=== PATIENT | male | born 1970 | race Caucasian/White ===

== ENCOUNTER 2019-10-04 12:43 | Outpatient (CLI) | payer BC, SELFPAY ==
--- NOTE | ~2019-10-04 | MM_ITS ---
EXAMINATION: MM diagnostic mammo BI HISTORY: Bilateral diagnostic mammogram for swollen and tender left breast TECHNIQUE: Full field digital craniocaudal and mediolateral oblique views of both breasts were obtain ed. CAD analysis was submitted and interpreted. COMPARISON: No prior mammogram is available for comparison at this institution. BREAST PARENCHYMAL COMPOSITION: The breasts are almost entirely fatty. FINDINGS: There is flame-shaped subareolar density in both breasts, left greater than right. No suspi cious mass, calcification, or architectural distortion is identified. IMPRESSION: 1. Findings consistent with asymmetric gynecomastia. No mammographic evidence of malignancy. Further evaluation at this time should be based on clinical assessment. Continued follow-up physical examinat ion is recommended. BI-RADS Category 2: Benign finding(s). Reviewed, dictated and finalized at location A. IMPRESSION: 1. Findings consistent with asymmetric gynecomastia. No mammographic evidence o f malignancy. Further evaluation at this time should be based on clinical asses sment. Continued follow-up physical examination is recommended. BI-RADS Category 2: Benign finding(s).
== END 2019-10-04 12:44 | disposition home or self-care (01) ==
LOC: ANHIMG 12:50
PROVIDERS: PCP Family Medicine; Visit Provider Family Medicine
DX: N62 Hypertrophy of breast (principal)
CPT/HCPCS: 77066

== ENCOUNTER 2020-02-27 07:55 | Outpatient (NON) | payer BC, SELFPAY ==
[2020-02-27 23:32] LABS: SARS-CoV-2 RNA PCR Negative
== END 2020-02-27 07:56 ==
PROVIDERS: PCP Family Medicine
DX: Z20.828 Contact with and (suspected) exposure to other viral communicable diseases (principal); R06.2 Wheezing
CPT/HCPCS: 87635; C9803; U0003

== ENCOUNTER 2021-06-02 00:12 | Day surgery (SDC) | payer BC, SELFPAY ==
[2021-05-23 13:14] VITALS: BMI 31.6
[2021-06-02 08:01] VITALS: BP 134/85; PULSE 101; RESP 17; TEMP 36.1; O2SAT 97; BMI 31.9
--- NOTE | 2021-06-02 08:04 | WPDANESEPPF ---
Anes - Initial Pre Proc Eval Procedure: Operation Date: 06/02/21 09:00 Proposed Procedures p Screening Colonoscopy - Danilo Bailey MD Date/Time: 06/02/21 08:04 Surgeon: Danilo Bailey MD Pre Op Diagnosis: neoplasm screening Patient Data Age: 50 Gender: M Height: 1.91 m Weight: 116 kg Last Vital Signs Temp 36.1 C L 06/02/21 08:01 Pulse 101 H 06/02/21 08:01 Resp 17 06/02/21 08:01 BP 134/85 06/02/21 08:01 Pulse Ox 97 06/02/21 08:01 Allergies Allergy/AdvReac Type Severity Reaction Status Date / Time No Known Allergies Allergy Verified 06/02/21 08:00 Home Medications Medication Instructions Recorded Confirmed Type cetirizine 10 mg tablet 10 mg PO DAILY PRN 11/11/20 06/02/21 History doxycycline hyclate 50 mg tablet 50 mg PO DAILY 11/11/20 06/02/21 History naproxen 500 mg tablet 500 mg PO BID PRN #60 tablet 12/12/20 06/02/21 Rx cyclobenzaprine 10 mg PO TID PRN 05/23/21 06/02/21 History fluticasone propionate [Flonase] 1 spray INTRANASAL BID 05/23/21 06/02/21 History multivit with min-folic acid 1 tablet PO DAILY 05/23/21 06/02/21 History [Adult One Daily Multivitamin] Patient hx anesthesia problems: none Family hx anesthesia problems: none Results Review: All pre-operative results and documents have been reviewed as part of the pre-operative evaluation. [facility] Past Medical History Medical History BMI 30.0-30.9,adult Gynecomastia Surgical History Surgical History History of removal of skin mole Family History Family History Sibling Hypertension Mother Cerebrovascular accident Social History Social History Second hand tobacco smoke exposure: No Alcohol intake: never Substance use: never Substance use type: does not use Gender identity (if verbalized by the patient): Male Anes - Eval Final PreProcedure Day of Procedure 06/02/21 08:04 Patient weight: obese Heart: regular rate and rhythm Lungs: clear to auscultation Airway: Mallampati scale class II Neurological: alert and oriented Last oral intake: >/= 8 hours ASA classification: II Emergent: no Anesthetic plan: proceed Anesthesia type and monitoring: general GIVS and standard monitoring Results Review: All pre-operative results and documents have been reviewed as part of the pre-operative evaluation. Informed Consent: The patient's anesthetic plan and its attendant risks and benefits were discussed with the patient/family/POA. Questions were solicited and answers provided to the satisfaction of the patient/family/POA.
[2021-06-02] MEDS: LACTATED RINGERS 1,000 ML 150 ML IV CONT (08:07)
--- NOTE | 2021-06-02 08:11 | WPDGICN ---
Assessment and Plan Assessment and plan (1) Encounter for screening colonoscopy: Code(s): Z12.11 - Encounter for screening for malignant neoplasm of colon Status: Acute Assessment and Plan: Patient presents for neoplasia screening because of his age. He also reports his father had colon resection apparently because of large :colon Lesion. (2) Family history of colonic polyps: Code(s): Z83.71 - Family history of colonic polyps Status: Acute Assessment and Plan: Patient's father had a colon resection presumed to be from large colon polyp. GI Consult Note Consult date/time: 06/02/21 08:11 HPI: Danilo Serrano is a 50 year old male Presents for screening colonoscopy. Patient reports that his current weight appetite and bowel movements are normal. Patient denies abdominal pain. He has had no bleeding. Family history is significant his father had a partial colectomy. Apparently because of a growth in his colon. Patient presents today for neoplasia screening. Review of Systems Review of Systems: All systems reviewed & are unremarkable except as noted in HPI and below PMFSH Past Medical History Medical History BMI 30.0-30.9,adult Gynecomastia Surgical History Surgical History History of removal of skin mole Family History Family History Sibling Hypertension Mother Cerebrovascular accident Social History Social History Second hand tobacco smoke exposure: No Alcohol intake: never Substance use: never Substance use type: does not use Gender identity (if verbalized by the patient): Male Meds Home Medications and Allergies Home Medications Medication Instructions Recorded Confirmed Type cetirizine 10 mg tablet 10 mg PO DAILY PRN 11/11/20 06/02/21 History doxycycline hyclate 50 mg tablet 50 mg PO DAILY 11/11/20 06/02/21 History naproxen 500 mg tablet 500 mg PO BID PRN #60 tablet 12/12/20 06/02/21 Rx cyclobenzaprine 10 mg PO TID PRN 05/23/21 06/02/21 History fluticasone propionate [Flonase] 1 spray INTRANASAL BID 05/23/21 06/02/21 History multivit with min-folic acid 1 tablet PO DAILY 05/23/21 06/02/21 History [Adult One Daily Multivitamin] Allergies Allergy/AdvReac Type Severity Reaction Status Date / Time No Known Allergies Allergy Verified 06/02/21 08:00 Vital Signs Vital Signs - 24 hr 06/02/21 08:01 Temperature 96.9 F L Pulse Rate 101 H Respiratory Rate 17 Blood Pressure 134/85 Pulse Oximetry 97 Exam Narrative: Physical exam reveals patient to be alert. Vital signs stable. HEENT exam is unremarkable. Lungs are clear to auscultation and percussion. Heart is without murmur or extra sounds. Abdominal exam bowel sounds are present soft nontender with no hepatosplenomegaly. Digital external rectal exam is normal.
[2021-06-02 09:00] VITALS: BP 111/73; PULSE 90; RESP 19; O2SAT 96
[2021-06-02 09:10] VITALS: BP 118/76; PULSE 92; RESP 16; O2SAT 100
[2021-06-02 09:20] VITALS: BP 126/84; PULSE 91; RESP 18; O2SAT 100
== END 2021-06-02 09:28 | disposition home or self-care (01) ==
PROVIDERS: PCP Family Medicine; Visit Provider Internal Medicine Gastroenterology
PROC: 0DJD8ZZ Inspection of Lower Intestinal Tract, Via Natural or Artificial Opening Endoscopic (ICD-10-PCS; CPT 45378; principal; 2021-06-02 09:00)
DX: Z12.11 Encounter for screening for malignant neoplasm of colon (principal); Z83.71 Family history of colonic polyps; K57.30 Diverticulosis of large intestine without perforation or abscess without bleeding; K64.8 Other hemorrhoids; N62 Hypertrophy of breast; E66.9 Obesity, unspecified; Z68.32 Body mass index [BMI] 32.0-32.9, adult
CPT/HCPCS: 45378; J2001; J2704; J7120

== ENCOUNTER 2022-03-17 11:38 | Emergency (ER) | payer BC, SELFPAY ==
[2022-03-17 11:51] VITALS: BP 144/86; PULSE 109; RESP 16; TEMP 36.8; O2SAT 99
--- NOTE | 2022-03-17 12:02 | ED.URI ---
HPI - URI/Sore Throat General Chief Complaint: Upper Respiratory Infection Stated Complaint: congestion; swollen lymph nodes; trouble breathing Time Seen by Provider: 03/17/22 11:55 Source: patient Mode of arrival: ambulatory Limitations: no limitations History of Present Illness HPI Narrative: Danilo is a 51-year-old male patient presenting to clinic today with complaints of cough, nasal congestion, sinus pain, and difficulty breathing of his nose x4 weeks. He reports that his symptoms started out with a head cold and have gradually gotten worse. He denies any fever or chills. States he has been having yellow nasal drainage with thick chunks in it. MD elicited complaint: cough, rhinorrhea, nasal congestion and sinus pain Related Data Home Medications Medication Instructions Recorded Confirmed cetirizine 10 mg tablet (Zyrtec) 10 mg PO DAILY PRN Allergies 11/11/20 11/03/21 fluticasone propionate 50 1 spray intranasal BID 05/23/21 11/03/21 mcg/actuation nasal spray,suspension multivitamin with minerals-folic 1 tablet PO DAILY 05/23/21 11/03/21 acid 0.4 mg tablet Allergies Allergy/AdvReac Type Severity Reaction Status Date / Time No Known Allergies Allergy Verified 03/17/22 12:07 Review of Systems Review of Systems: Pertinent positives per HPI. Patient denies any fever, chills, rash,visual changes, dizziness, shortness of breath, chest pain, palpitations, nausea, vomiting, diarrhea, constipation, abdominal pain, or any urinary issues. [facility] Past Medical History Medical History BMI 30.0-30.9,adult Gynecomastia Surgical History Surgical History History of removal of skin mole Family History Family History Sibling Hypertension Mother Cerebrovascular accident Social History Social History Smoking status: Never smoker Second hand tobacco smoke exposure: No Alcohol intake: never Substance use: never Substance use type: does not use Gender identity (if verbalized by the patient): Male Spiritual care concerns: No Agree to blood products: Yes Comments At the time of my signature, I reviewed and agree with the nursing past medical, surgical, social, and family history. There is no relevant family history pertinent to the patient complaint. Exam Narrative: General: Well-developed, well nourished, in no apparent distress Head: Normocephalic, atraumatic Eyes: Pupils equally round and reactive to light bilaterally, EOM intact, sclera and conjunctive clear, no discharge, lids normal Ears: TMs intact and clear, ear canals clear, no drainage, grossly hearing normal. Nose: Nares patent, yellow nasal discharge, moderate inflammation, maxillary and frontal sinus tenderness. Mouth: Oral pharynx without lesions or masses, good dentition, MMM. Postnasal drip Neck: Supple, trachea midline, mild enlargement of anterior cervical nodes, no thyroid masses or goiter palpable. Cardio: Regular rate and rhythm, s1 and s2 normal, no murmur appreciated. Resp: Clear to auscultation bilaterally, no rhonchi, rales, wheezing or rubs Course Course Emergency Course: Portions of this record may have been created with voice recognition software. Level of Care: Express Care Visit Vital Signs Vital signs: Vital Signs Temperature 36.8 C 03/17/22 11:51 Pulse Rate 109 H 03/17/22 11:51 Respiratory Rate 16 03/17/22 11:51 Blood Pressure 144/86 H 03/17/22 11:51 Pulse Oximetry 99 03/17/22 11:51 Temperature 36.8 C 03/17/22 11:51 Pulse Rate 109 H 03/17/22 11:51 Respiratory Rate 16 03/17/22 11:51 Blood Pressure 144/86 H 03/17/22 11:51 Pulse Oximetry 99 03/17/22 11:51 Vital signs reviewed MDM - URI/Sore Throat MDM Narrative Medical
== END 2022-03-17 12:08 | disposition home or self-care (01) ==
PROVIDERS: Emergency Provider Nurse Practitioner Family; PCP Family Medicine
DX: J01.90 Acute sinusitis, unspecified (principal)
CPT/HCPCS: 99213; G0463

== ENCOUNTER → 2022-06-08 09:54 | Outpatient (CLI) | payer BC, SELFPAY ==
--- NOTE | ~2022-06-08 | XR_ITS ---
Lumbosacral Spine: AP, oblique, and lateral views Clinical History: Pain Findings: The normal lordotic curve is maintained. The vertebral bodies and posterior elements are i ntact. There is moderate degenerative disc narrowing L4-L5 and L5-S1. Large anterior bridging osteoph yte present from L4 to L5. The sacroiliac joints are normally outlined. Impression: Mild degenerative spondylosis, as above. Reviewed, dictated and finalized at location M. Impression: Mild degenerative spondylosis, as above.
== END ==
PROVIDERS: PCP Family Medicine; Visit Provider Physician Assistant
DX: M47.26 Other spondylosis with radiculopathy, lumbar region (principal)
CPT/HCPCS: 72110

== ENCOUNTER 2022-06-29 12:33 | Outpatient (CLI) | payer BC, SELFPAY ==
--- NOTE | ~2022-06-29 | MR_ITS ---
EXAMINATION: MR lumbar spine wo con DATE: 06/29/2022 13:13 INDICATION: Low back pain. Numbness and tingling. Right lower limb pain and numbness. TECHNIQUE: Magnetic resonance imaging (MRI) of the lumbar spine was performed without intravenous con trast. Sequences included sagittal T2-weighted FSE, sagittal T2-weighted FS FSE, sagittal T1-weighted FSE, and axial T2-weighted FSE. COMPARISON: Lumbar spine radiographs 06/08/2022 FINDINGS: There is 3 mm retrolisthesis of L5 on S1. Vertebral body heights are normal. There is mildl y decreased disc height at L4-L5 and severely decreased disc at L5-S1 with endplate remodeling. The d istal spinal cord signal intensity is normal. The conus medullaris is at L1. The following disc level s are specifically discussed: L1-L2: The disc does not extend beyond the endplate margin. There is mild bilateral facet joint osteo arthritis. There is no neural foraminal stenosis. There is no central canal stenosis. L2-L3: The disc is mildly bulging. There is severe right and moderate left facet joint osteoarthritis . There is mild left neural foraminal stenosis. There is mild central canal stenosis. L3-L4: The disc is bulging and has an annular fissure. There is mild bilateral facet joint osteoarthr itis. There is mild bilateral neural foraminal stenosis. There is mild central canal stenosis. L4-L5: The disc is bulging with superimposed left central extrusion with mass effect on left L5 nerve root in left lateral recess. There is mild bilateral facet joint osteoarthritis. There is mild bilat eral neural foraminal stenosis. There is moderate central canal stenosis. There is severe stenosis of left lateral recess. L5-S1: The disc is bulging and has an annular fissure. There is mild right and moderate left facet marissa int osteoarthritis. There is moderate bilateral neural foraminal stenosis. There is mild central madhavi l stenosis. IMPRESSION: 1. Severe lower lumbar spondylosis. Of note, an extrusion at L4-L5 exerts mass effect on left L5 nerv e root. Reviewed, dictated and finalized at location A. IMPRESSION: 1. Severe lower lumbar spondylosis. Of note, an extrusion at L4-L5 exerts mass effect on left L5 nerve root.
== END 2022-06-29 12:34 | disposition home or self-care (01) ==
PROVIDERS: PCP Family Medicine; Visit Provider Physician Assistant
DX: M47.26 Other spondylosis with radiculopathy, lumbar region (principal); R20.0 Anesthesia of skin; R20.2 Paresthesia of skin
CPT/HCPCS: 72148

== ENCOUNTER 2022-07-28 09:42 | Outpatient (CLI) | payer BC, SELFPAY ==
--- NOTE | 2022-07-28 11:00 | NEURO_ITS ---
Impression: Patient reports numbness in the right lower extremity. # Reduce CMAP amplitudes in bilateral peroneal motor nerves and left tibial motor nerve. # Chronic neurogenic changes noted in bilateral EDB. 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 # Clinical correlation is recommended. Nerve Conduction Studies Anti Sensory Summary Table Stim Site NR Peak (ms) P-T Amp (?V) Site1 Site2 Delta-P (ms) Dist (cm) Tripp (m/s) Left Sup Fibular Anti Sensory (Ant Lat Mall) 14 cm 3.5 14.0 14 cm Ant Lat Mall 3.5 16.0 46 Right Sup Fibular Anti Sensory (Ant Lat Mall) 14 cm 3.6 26.6 14 cm Ant Lat Mall 3.6 16.0 44 Left Sural Anti Sensory (Lat Mall) Calf 3.5 10.7 Calf Lat Mall 3.5 16.0 46 Right Sural Anti Sensory (Lat Mall) Calf 3.6 10.0 Calf Lat Mall 3.6 16.0 44 Motor Summary Table Stim Site NR Onset (ms) O-P Amp (mV) Site1 Site2 Delta-0 (ms) Dist (cm) Tripp (m/s) Left Peroneal Motor (EDB) Ankle 4.8 1.3 Popit Ankle 10.4 48.0 46 Popit 15.2 1.0 B Fib Ankle 7.9 37.0 47 B Fib 12.7 0.4 Right Peroneal Motor (EDB) Ankle 4.7 1.1 Popit Ankle 10.1 47.0 47 Popit 14.8 0.6 B Fib Ankle 7.1 35.0 49 B Fib 11.8 0.7 Left Tibial Motor (Abd Chin Brev) Ankle 4.6 2.3 Knee Ankle 10.2 48.0 47 Knee 14.8 1.2 Right Tibial Motor (Abd Chin Brev) Ankle 4.5 6.4 Knee Ankle 11.0 48.0 44 Knee 15.5 4.5 F Wave Studies NR F-Lat (ms) L-R F-Lat (ms) Left Peroneal (Mrkrs) (EDB) 57.54 0.23 Right Peroneal (Mrkrs) (EDB) 57.31 0.23 Left Tibial (Mrkrs) Run #2 (Abd Hallucis) 57.82 0.35 Right Tibial (Mrkrs) (Abd Hallucis) 57.47 0.35 EMG Side Muscle Nerve Root Ins Act Fibs Amp Dur Recrt Comment Right AntTibialis Dp Br Fibular L4-5 Nml Nml Nml Nml Nml Right Gastroc Tibial S1-2 Nml Nml Nml Nml Nml Right Fibularis Long Sup Br Fibular L5-S1 Nml Nml Nml Nml Nml Right Flex Dig Long Tibial L5-S2 Nml Nml Nml Nml Nml Right Ext Dig Brev Dp Br Fibular L5, S1 Nml Nml Incr Nml Reduced Left AntTibialis Dp Br Fibular L4-5 Nml Nml Nml Nml Nml Left Gastroc Tibial S1-2 Nml Nml Nml Nml Nml Left Fibularis Long Sup Br Fibular L5-S1 Nml Nml Nml Nml Nml Left Flex Dig Long Tibial L5-S2 Nml Nml Nml Nml Nml Left Ext Dig Brev Dp Br Fibular L5, S1 Nml Nml Incr Nml Reduced MTDD
== END 2022-07-28 09:43 | disposition home or self-care (01) ==
LOC: ANHNEURO 09:43
PROVIDERS: PCP Family Medicine; Visit Provider Physician Assistant
DX: M54.16 Radiculopathy, lumbar region (principal)
CPT/HCPCS: 95886; 95910

== ENCOUNTER 2022-08-13 15:10 | Outpatient (CLI) | payer BC, SELFPAY ==
--- NOTE | ~2022-08-13 | XR_ITS ---
EXAMINATION: XR lumbar spine min 4V DATE: 08/13/2022 15:38 INDICATION: Spinal stenosis, lumbar region TECHNIQUE: 4 views of lumbar spine including flexion and extension views were obtained. COMPARISON: Lumbar spine radiographs 06/08/2022, MRI 06/29/2022 FINDINGS: There is 3 mm retrolisthesis of L5 on S1. The spine is hypomobile with flexion and extensio n. Vertebral body heights are normal. There is mildly decreased disc height at L4-L5 and severely dec reased disc height at L5-S1. There is multilevel facet joint osteoarthritis, moderate to severe at mu ltiple levels. IMPRESSION: 1. Severe lower lumbar spondylosis. Reviewed, dictated and finalized at location E.
== END 2022-08-13 15:11 | disposition home or self-care (01) ==
LOC: ANHIMG 15:12
PROVIDERS: PCP Family Medicine; Visit Provider Neurological Surgery
DX: M48.062 Spinal stenosis, lumbar region with neurogenic claudication (principal); M47.816 Spondylosis without myelopathy or radiculopathy, lumbar region
CPT/HCPCS: 72110

== ENCOUNTER 2024-03-13 15:04 | Emergency (ER) | payer BC, SELFPAY ==
--- NOTE | ~2024-03-13 | XR_ITS ---
XR toe 1st LT min 2V Ordering provider: Kaela Raines APRN History: . INJURY PAIN TO LEFT 1ST TOE . Comparison: None. FINDINGS: BONES: No acute fracture or dislocation. Small bony fragment seen near to the joint space laterally w hich may be fracture or osteophyte. Follow-up advised. JOINT SPACES: Narrowing of the first metatarsophalangeal joint. SOFT TISSUES: Normal. IMPRESSION: Small bony fragment seen near to the joint space laterally. Fracture osteophyte is possible. 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 Reviewed, dictated and finalized at location A. H MACHINE OPERATOR
[2024-03-13 15:55] VITALS: BP 125/75; PULSE 82; RESP 16; TEMP 36.4; O2SAT 99
--- NOTE | 2024-03-13 16:37 | ED_ITS ---
HPI - Extremity Injury (Lower) General Chief Complaint: Extremity Injury, Lower Stated Complaint: LT Foot Toe Injury Source: patient Mode of arrival: ambulatory Limitations: no limitations History of Present Illness HPI Narrative: 53-year-old male presented for complaint of left great toe pain and swelling after injury 2 days ago. He states he dropped heavy object on to the great toe. Reports bruising under the toenail, with nail intact. Applied ice but says it is too painful. Does not want to take any meds for pain. Says pain is minimal while at rest, worse with walking or touching the toe. Denies active bleeding, numbness, or deformity. Pt is established with retail representative, scheduled 03/30/24. Related Data Home Medications ?Medication ?Instructions ?Recorded ?Confirmed ?Last Taken ?Type cetirizine 10 mg tablet (Zyrtec) 10 mg PO DAILY PRN Allergies 11/11/20 11/09/23 Unknown History fluticasone propionate 50 1 spray intranasal BID 05/23/21 11/09/23 Unknown History mcg/actuation nasal spray,suspension multivitamin with minerals-folic 1 tablet PO DAILY 05/23/21 11/09/23 Unknown History acid 0.4 mg tablet Allergies Allergy/AdvReac Type Severity Reaction Status Date / Time No Known Allergies Allergy Verified 03/13/24 16:39 Review of Systems Review of Systems: CONSTITUTIONAL: Denies body aches, fever, chills CARDIOVASCULAR: Denies chest pain, palpitations, or edema. RESPIRATORY: Denies cough or dyspnea. SKIN: Denies rash MUSCULOSKELETAL: Reports left great toe pain NEUROLOGIC: Denies headache, numbness, tingling, or weakness. PSYCH: Denies depression or anxiety. All systems reviewed & are unremarkable except as noted in HPI and below PMFSH Past Medical History Medical History Lumbar stenosis with neurogenic claudication BMI 30.0-30.9,adult Gynecomastia Surgical History Surgical History History of removal of skin mole Family History Family History Sibling Hypertension Mother Cerebrovascular accident Social History Social History Smoking status: Never smoker Second hand tobacco smoke exposure: No Alcohol intake: never Substance use: never Substance use type: does not use Lack of Transportation: No Lack of Food: Never True Current Housing: I Have Housing Concerned About Future Housing: No Difficulty Paying Gas/Electric Bills: No Difficulty Paying for Meds: No Currently Unemployed: No Education: Master's Degree or Higher Difficulty w/ Childcare or Family Care: No Living arrangements: with family Occupation/Education: occupation Additional occupation/education comments: [employer] Gender identity (if verbalized by the patient): Male Spiritual care concerns: No Agree to blood products: Yes Comments At time of signature, I have reviewed and agree with nursing past medical, surgical, social and family history unless otherwise noted. Please see nursing chart for further information. There is no relevant family history pertinent to the presenting complaint Exam Narrative: GENERAL: Well-appearing CHEST: Speaks in full sentences. No respiratory distress. HEART: Regular rate and rhythm. Normal and equal peripheral pulses. EXTREMITIES: Left great toe with subungual hematoma, nail intact. moderate erythema and swelling to distal phalanx. Tender with light palpation. foot/digit has normal strength and sensation, normal range of motion but endorses pain with movement. No open wounds, or obvious deformity; pulse palpable and equal bilaterally, skin warm, dry, pink. Capillary refill less than 3 seconds. SKIN: Warm, dry NEURO: Alert and oriented x3. PSYCH: Normal mood and affect Course Course Emergency Course: Patient is aware of diagnosis, understands and agrees to treatment plan. Anticipatory guidance given. Patient agrees to follow-up as directed and is aware of reasons to seek care at the emergency department. Portions of this record may have been created with voice recognition software Level of Care: Express Care Visit Vital Signs Vital signs: Vital Signs Temperature 97.5 F L 03/13/24 15:55 Pulse Rate 82 03/13/24 15:55 Respiratory Rate 16 03/13/24 15:55 Blood Pressure 125/75 03/13/24 15:55 Pulse Oximetry 99 03/13/24 15:55 Oxygen Delivery Room Air 03/13/24 15:55 Temperature 97.5 F L 03/13/24 15:55 Pulse Rate 82 03/13/24 15:55 Respiratory Rate 16 03/13/24 15:55 Blood Pressure 125/75 03/13/24 15:55 Pulse Oximetry 99 03/13/24 15:55 Oxygen Delivery Room Air 03/13/24 15:55 Reviewed MDM - Extremity Injury (Lower) MDM Narrative Medical decision making narrative: Discussed physical exam findings and xray. Post op shoe applied. Injury >48 hours, advised podiatry for subungual hematoma. Says he is scheduled with his retail representative 03/30/24. Advised supportive measures and signs/symptoms to go to the ER. Pt is appropriate for outpt treatment and f/u. Differential Diagnosis Differential diagnosis: Likely other (toe fracture, contusion, dislocation, subungual hematoma, laceration) Imaging Data Radiologist's impression: Patient: Danilo Serrano : 1970 MR#: [id number] Age: 53 Acct:[id number] Loc: [facility] ADM Date: 03/13/24Attending Dr: Ordering Physician: Kaela Raines APRN Date of Service: 03/13/24 Procedure(s): XR toe 1st LT min 2V Accession Number(s): [id number] cc: Eva Chavez MD; Kaela Raines APRN~ XR toe 1st LT min 2V Ordering provider: Kaela Raines APRN History: . INJURY PAIN TO LEFT 1ST TOE . Comparison: None. FINDINGS: BONES: No acute fracture or dislocation. Small bony fragment seen near to the joint space laterally which may be fracture or osteophyte. Follow-up advised. JOINT SPACES: Narrowing of the first metatarsophalangeal joint. SOFT TISSUES: Normal. IMPRESSION: Small bony fragment seen near to the joint space laterally. Fracture osteophyte is possible. 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 Discharge Plan Discharge Clinical Impression: Great toe pain Qualifiers: Laterality: left Qualified Code(s): M79.675 - Pain in left toe(s) Patient Disposition: Home, Self-Care Condition: Stable Instructions: Antibiotic Form, Toe Fracture (ED) Additional Instructions: Rest, ice and elevate the left foot. Activity as tolerated Motrin 600mg every 8 hours, as needed, for pain (take with food). Tylenol 1000mg every 8 hours. Take antibiotic as directed Wear the postop shoe when walking Go to the ER immediately for increased pain, tingling/numbness, swelling, redness, etc. Follow up with PCP and/or podiatry in 3 days for further evaluation - please call for an appointment. Patient Language: Sami Prescriptions: New cephalexin 500 mg capsule 500 mg PO Q8H 5 Days Qty: 15 0RF No Action cetirizine [Zyrtec] 10 mg tablet 10 mg PO DAILY PRN (Reason: Allergies) omeprazole 20 mg capsule,delayed release(DR/EC) 20 mg PO DAILY Qty: 30 6RF fluticasone propionate [Flonase] 50 mcg/actuation [place],Suspension 1 spray INTRANASAL BID multivit with min-folic acid [Adult One Daily Multivitamin] 0.4 mg Tablet 1 tablet PO DAILY naproxen 500 mg tablet 500 mg PO BID PRN (Reason: pain) Qty: 180 0RF cyclobenzaprine 10 mg tablet 10 mg PO TID PRN (Reason: muscle spasm) Qty: 180 0RF Follow-up/Referrals: Eva Chavez MD [Primary Care Provider] - Time of Disposition: 16:48
== END 2024-03-13 16:50 | disposition home or self-care (01) ==
PROVIDERS: Emergency Provider Nurse Practitioner Family; PCP Family Medicine
DX: M79.675 Pain in left toe(s) (principal); W20.8XXA Other cause of strike by thrown, projected or falling object, initial encounter
CPT/HCPCS: 73660; 99213; G0463